=== PATIENT | male | born 1970 | race Caucasian/White ===

== ENCOUNTER 2018-03-21 16:15 | Emergency (ER) | payer MEDICAID ==
--- NOTE | 2018-03-21 18:09 | Emergency Department Record ---
History of Present Illness - General Chief complaint: Edema Stated complaint: BOTH LEG SWELLING Time Seen by Provider: 03/21/18 18:04 Source: Patient Mode of Arrival: Ambulatory Limitations: No limitations - History of Present Illness Initial comments: 47 yo male presents to ED for evaluation of swelling to the LLE over the past 4 days. Patient report milder swelling to the RLE, denies previous history of symptoms. Patient does report a history of fracture repair to the right ankle that intermittently results in pain. Patient denies history of DVT, denies history of CHF previously. Patient also denies fevers, chills, or recent illness. MD Complaint: Extremity swelling Onset/Timin -: Days(s) Location: Left, Right, Lower Leg Severity scale (1-10): 7 Quality: Aching, Dull Consistency: Constant Improves with: Nothing Worsens with: Nothing - Related Data Allergies Allergy/AdvReac Type Severity Reaction Status Date / Time No Known Drug Allergies Allergy Verified 03/21/18 17:25 Travel Screening - Travel/Exposure Within Last 30 Days Have you traveled within the last 30 days?: No - Travel/Exposure Within Last Year Have you traveled outside the [place] in the last year?: No - Additonal Travel Details Have you been exposed to anyone with a communicable illness?: No - Travel Symptoms Symptom Screening: None Review of Systems Constitutional: Denies: Chills, Fever, Malaise, Night sweats Eyes: Denies: Eye discharge, Eye pain ENT: Denies: Congestion, Ear pain, Epistaxis Respiratory: Denies: Cough, Dyspnea Cardiovascular: Denies: Chest pain, Dyspnea on exertion Endocrine: Denies: Fatigue, Heat or cold intolerance Gastrointestinal: Denies: Abdominal pain, Nausea, Vomiting Genitourinary: Denies: Incontinence, Retention Skin: Denies: Bruising, Change in color, Change in hair/nails Neurological: Denies: Abnormal gait, Confusion, Headache Psychiatric: Denies: Anxiety Hematological/Lymphatic: Denies: Anemia, Blood Clots, Easy bleeding, Easy bruising Past Medical History - SOCIAL HISTORY Smoking Status: Current every day smoker Alcohol Use: Occasional Drug Use: Rare - RESPIRATORY Hx Respiratory Disorders: Yes Hx Asthma: Yes Hx COPD: Yes - CARDIOVASCULAR Hx Cardio Disorders: Yes Hx Hypertension: Yes - NEURO Hx Neuro Disorders: No - GI Hx GI Disorders: Yes Hx Reflux: Yes - Hx Genitourinary Disorders: No - ENDOCRINE Hx Endocrine Disorders: No - MUSCULOSKELETAL Hx Musculoskeletal Disorders: Yes 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 negative: Conjunctival injection, Periorbital swelling, Periorbital tenderness, Scleral icterus - ENT Ear exam: negative: Auricular hematoma, Auricular trauma Nasal Exam: negative: Active bleeding, Discharge, Dried blood, Foreign body Mouth exam: negative: Drooling, Laceration, Muffled voice, Tongue elevation - Neck Neck exam: Normal inspection. negative: Meningismus, Tenderness - Respiratory Respiratory exam: Normal lung sounds bilaterally. negative: Chest wall tenderness, Rhonchi, Stridor - Cardiovascular Cardiovascular Exam: Regular rate, Normal rhythm, Normal heart sounds - GI/Abdominal GI/Abdominal exam: Soft. negative: Rebound, Rigid, Tenderness - Rectal Rectal exam: Deferred - exam: Deferred - Extremities Extremities exam: Pedal edema (Trace edema bilaterlaly, left calf is significantly larger in diameter than the right on exmaination. DPP strong and equal bilaterally.). negative: Calf tenderness - Back Back exam: Denies: CVA tenderness (R), CVA tenderness (L) - Neurological Neurological exam: Alert, Normal gait, Oriented X3 - Psychiatric Psychiatric exam: Normal affect, Normal mood - Skin Skin exam: negative: Abrasion Type of lesion: negative: abrasion Course Vital Signs 03/21/18 17:14 Temperature 97.8 F Pulse Rate 66 Respiratory 18 Rate Blood Pressure 136/99 Pulse Ox 100 - Reevaluation(s) Reevaluation #1: 03/21/18 19:08 Laboratory studies were reviewed and are grossly unremarkable for an acute process except for: D-Dimer 0.96 BNP 210. Patient was updated on all results, will initiate transfer for lower extremity. 03/21/18 19:12 Patient was updated on all results, recommended transfer to exclude DVT via doppler. Following discussion with the patient regarding transfer, patient reports that they want to leave AMA at this time. Risks of , permanent impairment, or worsening of their current condition were discussed as well as the benefit of transfer for doppler evaluation of their presenting symptoms. Patient verbalizes understanding of all risks and benefits, desires to leave AMA despite these risks. Based on my examination, the patient is alert, oriented, and answers all questions appropriately. Patient appears to have the capacity to make rational decisions based on my examination. Patients family member was present for the duration of our discussion as well. Patient was encouraged to return to the ED immediately if they change their mind about treatment and want to be re-evaluated. Medical Decision Making - Lab Data Result diagrams: 03/21/18 18:24 03/21/18 18:24 Disposition Disposition: Other Clinical Impression: Swelling of lower extremity Disposition: Against Medical Advice Condition: (2) Stable Instructions: Leg Edema (ED) Additional Instructions: Return to ED if you change your mind and want to be re-evaluated for your leg pain symptoms. Follow-up with your family doctor in 1-3 days as directed. Forms: Patient Portal Access Time of Disposition: 19:15 Quality - Quality Measures Quality Measures: N/A - Blood Pressure Screening Does Patient Have Any of the Following: No Blood Pressure Classification: Hypertensive Reading Systolic Measurement: 136 Diastolic Measurement: 99 Screening for High Blood Pressure: < First Hypertensive BP, F/U Documented > [ [id number]] First Hypertensive Follow-up Interventions: Referral to alternative/primary care provider.
[2018-03-21 18:28] LABS: HEMATOCRIT 40.3 % (42.0-52.0); HEMOGLOBIN 14.1 gm/dl (14.0-18.0); MEAN CELL VOLUME 86.9 fl (81-97); MEAN CORPUSCULAR HEMOGLOBIN 30.4 pg (27-33); MEAN PLATELET VOLUME 9.4 fl (7.4-10.4); PLATELET COUNT 235 K/uL (130-400); RED BLOOD COUNT 4.64 M/uL (4.40-5.70); RED CELL DISTRIBUTION WIDTH 13.4 % (11.5-14.5); WHITE BLOOD COUNT W/O DIFF 8.9 K/uL (4.2-12.2)
[2018-03-21 18:41] LABS: BLOOD UREA NITROGEN 19 mg/dL (6-20); CREATININE 0.8 mg/dL (0.7-1.2); EST GLOMERULAR FILTRATION RATE > 60 mL/min
[2018-03-21 18:42] LABS: TOTAL PROTEIN 6.8 g/dL (6.6-8.7)
[2018-03-21 18:44] LABS: GLUCOSE,RANDOM 104 mg/dL (74-109)
[2018-03-21 18:47] LABS: ALB/GLOB RATIO 1.7 (1.1-1.8); ALBUMIN 4.3 g/dL (4.0-5.0); ALKALINE PHOSPHATASE 109 U/L (40-129); ALT/SGPT 21 U/L (<41); AST/SGOT 19 U/L (10.0-50.0)
== END 2018-03-21 20:07 | disposition left against medical advice (07) ==
LOC: ER 16:15
DX: R60.0 Localized edema (principal); R79.89 Other specified abnormal findings of blood chemistry; J44.9 Chronic obstructive pulmonary disease, unspecified; I10 Essential (primary) hypertension; Z87.891 Personal history of nicotine dependence
CPT/HCPCS: 80053; 83880; 85027; 85379; 99283